=== PATIENT | female | born 1955 | race Caucasian/White ===

== ENCOUNTER 2016-11-06 09:36 | Outpatient (CLI) | payer MEDICAID | END 2016-11-06 09:37 | disposition home or self-care (01) | DX: Z79.01 Long term (current) use of anticoagulants (principal) ==

== ENCOUNTER 2016-11-19 09:07 | Outpatient (CLI) | payer MEDICAID | END 2016-11-19 09:08 | disposition home or self-care (01) | DX: Z79.01 Long term (current) use of anticoagulants (principal) ==

== ENCOUNTER 2016-11-26 | Outpatient (CLI) | payer MEDICAID | END 2016-11-26 13:56 | disposition home or self-care (01) | DX: R07.9 Chest pain, unspecified (principal) ==

== ENCOUNTER 2016-11-26 | Outpatient (CLI) | payer MEDICAID | END 2016-11-26 14:29 | disposition critical access hospital (66) | CPT/HCPCS: A0425; A0427 ==

== ENCOUNTER 2016-11-26 | Outpatient (CLI) | payer MEDICAID | END 2016-11-26 22:11 | disposition short-term general hospital (02) | CPT/HCPCS: A0170; A0425; A0426 ==

== ENCOUNTER 2016-11-26 10:43 | Outpatient (CLI) | payer MEDICAID | END 2016-11-26 10:44 | disposition home or self-care (01) | DX: Z79.01 Long term (current) use of anticoagulants (principal) ==

== ENCOUNTER 2016-11-26 15:02 | Emergency (ER) | payer MEDICAID ==
[2016-11-26] MEDS ORDERED: ASPIRIN CHEW 81 MG TABLET PO STA (15:42)
[2016-11-26] MEDS ORDERED: ASPIRIN CHEW 81 MG TABLET ONE (15:49)
[2016-11-26] MEDS ORDERED: METOPROLOL TARTRATE 50 MG TABLET PO STA (17:05)
[2016-11-26] MEDS ORDERED: HEPARIN 5,000 UNIT/ML VIAL IVP ONE (17:05)
[2016-11-26] MEDS ORDERED: HEPARIN 25,000 UNITS/500 ML 500 ML IV STA (17:05)
[2016-11-26] MEDS ORDERED: HEPARIN 5,000 UNIT/ML VIAL ONE (17:12)
[2016-11-26] MEDS ORDERED: METOPROLOL TARTRATE 50 MG TABLET ONE (17:12)
[2016-11-26] MEDS ORDERED: HEPARIN 25,000 UNITS/500 ML 500 ML IV ONE (17:13)
== END 2016-11-26 22:05 | disposition short-term general hospital (02) ==
DX: I25.110 Atherosclerotic heart disease of native coronary artery with unstable angina pectoris (principal); I11.0 Hypertensive heart disease with heart failure; I50.20 Unspecified systolic (congestive) heart failure; I08.2 Rheumatic disorders of both aortic and tricuspid valves; I48.91 Unspecified atrial fibrillation; Z79.01 Long term (current) use of anticoagulants; E11.42 Type 2 diabetes mellitus with diabetic polyneuropathy; E11.51 Type 2 diabetes mellitus with diabetic peripheral angiopathy without gangrene; Z79.4 Long term (current) use of insulin; E66.01 Morbid (severe) obesity due to excess calories; Z68.44 Body mass index [BMI] 60.0-69.9, adult; Z87.891 Personal history of nicotine dependence; E11.621 Type 2 diabetes mellitus with foot ulcer; L97.521 Non-pressure chronic ulcer of other part of left foot limited to breakdown of skin; S81.812A Laceration without foreign body, left lower leg, initial encounter; W27.2XXA Contact with scissors, initial encounter; Z48.00 Encounter for change or removal of nonsurgical wound dressing
CPT/HCPCS: 36415; 71010; 80053; 80162; 82550; 82553; 83690; 84484; 85025; 85610; 93005; 93010; 96365; 96366; 96376; 97597; 99285; 99291; A9270

== ENCOUNTER 2016-12-06 09:15 | Outpatient (CLI) | payer MEDICAID | END 2016-12-06 09:16 | disposition home or self-care (01) | DX: Z79.01 Long term (current) use of anticoagulants (principal) ==

== ENCOUNTER 2016-12-19 | Outpatient (CLI) | payer MEDICAID | END 2016-12-19 20:26 | disposition critical access hospital (66) | DX: R06.00 Dyspnea, unspecified (principal) | CPT/HCPCS: A0425; A0427 ==

== ENCOUNTER 2016-12-19 20:50 | Inpatient (IN) | payer MEDICAID ==
[2016-12-19] MEDS ORDERED: FUROSEMIDE 40 MG/4 ML VIAL IVP STA ×2 (21:24→21:25)
[2016-12-19] MEDS ORDERED: FUROSEMIDE 40 MG/4 ML VIAL ONE ×2 (21:25→21:42)
[2016-12-19] MEDS ORDERED: ATORVASTATIN 10 MG TABLET PO SCH (23:00)
[2016-12-19] MEDS ORDERED: ACETAMINOPHEN 325 MG TABLET PO PRN (23:11)
[2016-12-19] MEDS ORDERED: ONDANSETRON 4 MG/2 ML VIAL IVP PRN (23:11)
[2016-12-19] MEDS ORDERED: HYDROcod/ACETAM 5/325 MG TABLET PO PRN (23:16)
[2016-12-20] MEDS ORDERED: GLUCAGON 1 MG/ML VIAL SUBQ PRN (00:18)
[2016-12-20] MEDS ORDERED: DEXTROSE 50% ABBOJECT 25 GM/50 ML SYRINGE IVP PRN (00:18)
[2016-12-20] MEDS ORDERED: DEXTROSE GEL 37.5 GM TUBE PO PRN (00:18)
[2016-12-20] MEDS ORDERED: DEXTROSE 5% 1,000 ML IV PRN (00:18)
[2016-12-20] MEDS ORDERED: NITROGLYCERIN SL 0.4 MG TABLET SL PRN (01:52)
[2016-12-20] MEDS: SODIUM CHLORIDE FLUSH 0.9% 10 ML SYRINGE IVP SCH ×3 (06:02→22:20)
[2016-12-20] MEDS ORDERED: INSULIN LISPRO 100 UNIT/1 ML 10 ML MDV SUBQ SCH (08:00)
[2016-12-20] MEDS: INSULIN ASPART 300 UNIT/3 ML PEN SUBQ SCH ×4 (08:12→22:11)
[2016-12-20] MEDS ORDERED: LOVASTATIN 40 MG PO SCH (09:00)
[2016-12-20] MEDS ORDERED: metOLazone 2.5 MG TABLET PO SCH (09:00)
[2016-12-20] MEDS ORDERED: INSULIN GLARGINE 300 UNIT/3 ML PEN SUBQ SCH (09:00)
[2016-12-20] MEDS ORDERED: CEPHALEXIN 250 MG CAPSULE PO SCH (09:00)
[2016-12-20] MEDS: INSULIN GLARGINE 300 UNIT/3 ML PEN SUBQ SCH ×2 (09:48→22:12)
[2016-12-20] MEDS: CITALOPRAM 10 MG TABLET PO SCH (09:50)
[2016-12-20] MEDS: DIGOXIN 125 MCG TABLET PO SCH (09:50)
[2016-12-20] MEDS: CEPHALEXIN 250 MG CAPSULE PO SCH (09:50)
[2016-12-20] MEDS: SPIRONOLACTONE 25 MG TABLET PO SCH (09:51)
[2016-12-20] MEDS: POLYETHYLENE GLYCOL 3350 17 GM PACKET PO SCH (09:51)
[2016-12-20] MEDS: LISINOPRIL 5 MG TABLET PO SCH (09:51)
[2016-12-20] MEDS: TRIAMCINOLONE 0.1% OINT 15 GM TUBE TOP SCH ×2 (09:51→22:14)
[2016-12-20] MEDS: METOPROLOL TARTRATE 25 MG TABLET PO SCH ×2 (09:53→22:14)
[2016-12-20] MEDS: FUROSEMIDE 40 MG/4 ML VIAL IVP SCH ×2 (09:53→22:14)
[2016-12-20] MEDS ORDERED: WARFARIN 5 MG TABLET PO SCH (14:00)
[2016-12-20] MEDS: SODIUM CHLORIDE FLUSH 0.9% 10 ML SYRINGE IVP PRN (14:07)
[2016-12-20] MEDS: metOLazone 2.5 MG TABLET PO SCH (19:53)
[2016-12-20] MEDS: ATORVASTATIN 40 MG TABLET PO SCH (22:14)
[2016-12-21] MEDS: SODIUM CHLORIDE FLUSH 0.9% 10 ML SYRINGE IVP SCH ×3 (06:35→20:49)
[2016-12-21] MEDS: INSULIN ASPART 300 UNIT/3 ML PEN SUBQ SCH ×4 (08:02→20:48)
[2016-12-21] MEDS: metOLazone 2.5 MG TABLET PO SCH ×2 (08:04→20:48)
[2016-12-21] MEDS: CEPHALEXIN 250 MG CAPSULE PO SCH (09:09)
[2016-12-21] MEDS: CITALOPRAM 10 MG TABLET PO SCH (09:10)
[2016-12-21] MEDS: DIGOXIN 125 MCG TABLET PO SCH (09:11)
[2016-12-21] MEDS: SPIRONOLACTONE 25 MG TABLET PO SCH (09:12)
[2016-12-21] MEDS: LISINOPRIL 5 MG TABLET PO SCH (09:12)
[2016-12-21] MEDS: METOPROLOL TARTRATE 25 MG TABLET PO SCH ×2 (09:17→20:47)
[2016-12-21] MEDS: POLYETHYLENE GLYCOL 3350 17 GM PACKET PO SCH (09:19)
[2016-12-21] MEDS: FUROSEMIDE 40 MG/4 ML VIAL IVP SCH (09:20)
[2016-12-21] MEDS: SODIUM CHLORIDE FLUSH 0.9% 10 ML SYRINGE IVP PRN (09:24)
[2016-12-21] MEDS: INSULIN GLARGINE 300 UNIT/3 ML PEN SUBQ SCH ×2 (10:15→20:48)
[2016-12-21] MEDS: ENOXAPARIN 40 MG/0.4 ML SYRINGE SUBQ SCH (10:18)
[2016-12-21] MEDS: ASPIRIN EC 81 MG TABLET PO SCH (10:21)
[2016-12-21] MEDS: TRIAMCINOLONE 0.1% OINT 15 GM TUBE TOP SCH ×2 (10:21→20:49)
[2016-12-21] MEDS: SODIUM CHLORIDE 0.45% 1,000 ML IV SCH (10:27)
[2016-12-21] MEDS: NYSTATIN POWDER 15 GM TOP PRN (13:18)
[2016-12-21] MEDS ORDERED: WARFARIN 5 MG TABLET PO SCH (14:00)
[2016-12-21] MEDS: FUROSEMIDE 20 MG/2 ML VIAL IVP SCH (17:08)
[2016-12-21] MEDS: ATORVASTATIN 40 MG TABLET PO SCH (20:48)
[2016-12-22] MEDS: SODIUM CHLORIDE FLUSH 0.9% 10 ML SYRINGE IVP SCH ×3 (06:02→21:15)
[2016-12-22] MEDS: FUROSEMIDE 20 MG/2 ML VIAL IVP SCH (06:02)
[2016-12-22] MEDS: SODIUM CHLORIDE 0.45% 1,000 ML IV SCH (06:02)
[2016-12-22] MEDS: NYSTATIN POWDER 15 GM TOP PRN (06:10)
[2016-12-22] MEDS: INSULIN GLARGINE 300 UNIT/3 ML PEN SUBQ SCH ×2 (08:05→21:11)
[2016-12-22] MEDS: INSULIN ASPART 300 UNIT/3 ML PEN SUBQ SCH ×4 (08:07→21:13)
[2016-12-22] MEDS: DIGOXIN 125 MCG TABLET PO SCH (08:22)
[2016-12-22] MEDS: SPIRONOLACTONE 25 MG TABLET PO SCH (08:23)
[2016-12-22] MEDS: METOPROLOL TARTRATE 25 MG TABLET PO SCH ×2 (08:23→21:10)
[2016-12-22] MEDS: CITALOPRAM 10 MG TABLET PO SCH (08:24)
[2016-12-22] MEDS: ASPIRIN EC 81 MG TABLET PO SCH (08:24)
[2016-12-22] MEDS: LISINOPRIL 5 MG TABLET PO SCH (08:24)
[2016-12-22] MEDS: CEPHALEXIN 250 MG CAPSULE PO SCH (08:25)
[2016-12-22] MEDS: ENOXAPARIN 40 MG/0.4 ML SYRINGE SUBQ SCH (08:25)
[2016-12-22] MEDS: POLYETHYLENE GLYCOL 3350 17 GM PACKET PO SCH (12:10)
[2016-12-22] MEDS: TRIAMCINOLONE 0.1% OINT 15 GM TUBE TOP SCH ×2 (12:11→21:16)
[2016-12-22] MEDS: WARFARIN 2.5 MG TABLET PO SCH ×2 (14:01→15:12)
[2016-12-22] MEDS ORDERED: WARFARIN 2.5 MG TABLET PO SCH (15:00)
[2016-12-22] MEDS ORDERED: SODIUM CHLORIDE 0.9% 1,000 ML IV SCH ×2 (17:00→18:00)
[2016-12-22] MEDS ORDERED: guaiFENesin/DEXTROMETHORPHAN 10 ML UDC PO PRN (19:51)
[2016-12-22] MEDS: ATORVASTATIN 40 MG TABLET PO SCH (21:10)
[2016-12-23] MEDS: SODIUM CHLORIDE FLUSH 0.9% 10 ML SYRINGE IVP SCH ×2 (05:37→07:30)
[2016-12-23] MEDS: SODIUM CHLORIDE FLUSH 0.9% 10 ML SYRINGE IVP PRN (07:30)
[2016-12-23] MEDS: INSULIN ASPART 300 UNIT/3 ML PEN SUBQ SCH ×2 (07:33→11:55)
[2016-12-23] MEDS ORDERED: SODIUM CHLORIDE 0.9% 1,000 ML IV SCH ×2 (08:00)
[2016-12-23] MEDS: DIGOXIN 125 MCG TABLET PO SCH (08:20)
[2016-12-23] MEDS: CEPHALEXIN 250 MG CAPSULE PO SCH (08:20)
[2016-12-23] MEDS: LISINOPRIL 5 MG TABLET PO SCH (08:21)
[2016-12-23] MEDS: METOPROLOL TARTRATE 25 MG TABLET PO SCH (08:21)
[2016-12-23] MEDS: CITALOPRAM 10 MG TABLET PO SCH (08:21)
[2016-12-23] MEDS: ENOXAPARIN 40 MG/0.4 ML SYRINGE SUBQ SCH (08:22)
[2016-12-23] MEDS: ASPIRIN EC 81 MG TABLET PO SCH (08:22)
[2016-12-23] MEDS: INSULIN GLARGINE 300 UNIT/3 ML PEN SUBQ SCH (08:23)
[2016-12-23] MEDS: POLYETHYLENE GLYCOL 3350 17 GM PACKET PO SCH (08:25)
[2016-12-23] MEDS: TRIAMCINOLONE 0.1% OINT 15 GM TUBE TOP SCH (08:26)
[2016-12-23] MEDS ORDERED: WARFARIN 5 MG TABLET PO ONE (13:00)
== END 2016-12-23 16:39 | disposition home or self-care (01) | DRG 291 ==
DX: I13.0 Hypertensive heart and chronic kidney disease with heart failure and stage 1 through stage 4 chronic kidney disease, or unspecified chronic kidney disease (principal); I50.33 Acute on chronic diastolic (congestive) heart failure; J96.01 Acute respiratory failure with hypoxia; N17.9 Acute kidney failure, unspecified; Z68.42 Body mass index [BMI] 45.0-49.9, adult; I35.0 Nonrheumatic aortic (valve) stenosis; I25.10 Atherosclerotic heart disease of native coronary artery without angina pectoris; Z79.01 Long term (current) use of anticoagulants; I25.2 Old myocardial infarction; Z79.4 Long term (current) use of insulin; L73.2 Hidradenitis suppurativa; G47.33 Obstructive sleep apnea (adult) (pediatric); I48.2 Chronic atrial fibrillation; E66.01 Morbid (severe) obesity due to excess calories; E11.51 Type 2 diabetes mellitus with diabetic peripheral angiopathy without gangrene; Z82.49 Family history of ischemic heart disease and other diseases of the circulatory system; Z87.891 Personal history of nicotine dependence; Z79.82 Long term (current) use of aspirin; N18.3 Chronic kidney disease, stage 3 (moderate); E11.22 Type 2 diabetes mellitus with diabetic chronic kidney disease; E11.42 Type 2 diabetes mellitus with diabetic polyneuropathy; Z98.49 Cataract extraction status, unspecified eye

== ENCOUNTER 2016-12-28 10:43 | Outpatient (CLI) | payer MEDICAID | END 2016-12-28 10:44 | disposition home or self-care (01) | DX: Z79.01 Long term (current) use of anticoagulants (principal); Z87.448 Personal history of other diseases of urinary system ==

== ENCOUNTER 2016-12-31 11:45 | Outpatient (CLI) | payer MEDICAID | END 2016-12-31 11:46 | DX: M54.5 Low back pain (principal) ==

== ENCOUNTER 2016-12-31 13:50 | Outpatient (CLI) | payer MEDICAID | END 2016-12-31 13:51 | disposition home or self-care (01) | DX: Z79.01 Long term (current) use of anticoagulants (principal) ==

== ENCOUNTER 2017-01-15 14:59 | Outpatient (CLI) | payer MEDICAID | END 2017-01-15 15:00 | disposition home or self-care (01) | DX: Z79.01 Long term (current) use of anticoagulants (principal) ==

== ENCOUNTER 2017-01-18 20:13 | Outpatient (CLI) | payer MEDICAID | END 2017-01-18 20:14 | disposition short-term general hospital (02) | DX: R07.9 Chest pain, unspecified (principal); R61 Generalized hyperhidrosis | CPT/HCPCS: A0425; A0433 ==